=== PATIENT | female | born 2000 | race Hispanic/Latino ===

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

== ENCOUNTER 2023-02-23 14:23 | Outpatient (CLI) | payer OTHER ==
[2023-02-23 15:39] LABS: BHCG - Serum Negative (NEGATIVE); Pregs Control Background? CLEAR/WHITE (CLR/WHITE); Pregs Control Bar Appear? YES (CONTROL BAR)
== END 2023-02-23 14:24 | disposition home or self-care (01) ==
LOC: CSHLAB 14:23
PROVIDERS: ATTEND Otolaryngology Plastic Surgery within the Head & Neck
DX: Z01.812 Encounter for preprocedural laboratory examination (principal); D37.02 Neoplasm of uncertain behavior of tongue
CPT/HCPCS: 84703; 85014

== ENCOUNTER 2023-02-28 08:15 | Day surgery (SDC) | payer OTHER ==
[2023-02-23 14:58] VITALS: BMI 21.2
[~2023-02-28 08:15] MED LIST: Dexmedetomidine 200 MCG/2 ML VIAL ONE; MINERAL OIL/WHITE PETROLATUM 3.5 GM TUBE ONE; SUGAMMADEX SODIUM 200 MG/2 ML VIAL ONE
[2023-02-28] MEDS ORDERED: PROPOFOL 20 ML ONE (09:58)
[2023-02-28] MEDS ORDERED: fentaNYL 50 mcg/mL 1 mL Vial ONE (09:58)
[2023-02-28] MEDS ORDERED: Rocuronium Bromide 10 MG/ML (10ML VIAL) ONE (09:59)
[2023-02-28] MEDS ORDERED: Dexamethasone 20 MG/5 ML VIAL ONE (09:59)
[2023-02-28] MEDS ORDERED: Midazolam HCl 2 mg/2 ml Vial ONE (09:59)
[2023-02-28] MEDS ORDERED: Ondansetron PF 4 MG/2 ML Vial ONE (09:59)
[2023-02-28] MEDS ORDERED: Lidocaine 1% PF 5 ML VIAL ONE (09:59)
[2023-02-28] MEDS ORDERED: EPINEPHrine 1 MG/ML AMP ONE (10:16)
== END 2023-02-28 12:25 | disposition home or self-care (01) ==
LOC: CSHSDC 08:15
PROVIDERS: ATTEND Otolaryngology Plastic Surgery within the Head & Neck
PROC: 0CBM8ZX Excision of Pharynx, Via Natural or Artificial Opening Endoscopic, Diagnostic (ICD-10-PCS; principal; 2023-02-28)
DX: D37.02 Neoplasm of uncertain behavior of tongue (principal); J45.909 Unspecified asthma, uncomplicated; Z91.010 Allergy to peanuts; Z91.018 Allergy to other foods; Z79.899 Other long term (current) drug therapy; Z88.0 Allergy status to penicillin; Z88.1 Allergy status to other antibiotic agents; Z88.8 Allergy status to other drugs, medicaments and biological substances; Z90.49 Acquired absence of other specified parts of digestive tract
CPT/HCPCS: 88305; 88311; J0171; J1100; J2250; J2405; J2704; J3010